=== PATIENT | female | born 1960 | race Caucasian/White ===

== ENCOUNTER 2020-07-21 09:22 | Outpatient (CLI) | payer OTHER ==
--- NOTE | 2020-07-21 12:11 | MRI ---
MRI BRAIN NONCONTRAST: DATE: 07/21/2020 HISTORY: 59-year-old female with migraine with aura, not intractable, without status migrainosus. FINDINGS: The ventricles are normal in size and configuration. There is no major intra-axial signal abnormality , restricted diffusion, midline shift or any other mass effect, recent intra-axial hemorrhage, or extra-axial fluid collection. IMPRESSION: Normal
== END 2020-07-21 09:23 | disposition home or self-care (01) ==
LOC: MRI 09:22
PROVIDERS: ATTEND Psychiatry & Neurology Neurology
DX: G43.109 Migraine with aura, not intractable, without status migrainosus (principal)
CPT/HCPCS: 70553; 82565

== ENCOUNTER → 2020-12-20 | Day surgery (SDC) | payer OTHER ==
[~2020-12-20] MED LIST: Lidocaine 1% w/Epinephrine 1:100K 20 ML VIAL ONE
== END ==
LOC: SDC 10:06
PROVIDERS: ATTEND Internal Medicine Cardiovascular Disease
PROC: 0JPT02Z Removal of Monitoring Device from Trunk Subcutaneous Tissue and Fascia, Open Approach (ICD-10-PCS; principal; 2020-12-20)
DX: Z45.09 Encounter for adjustment and management of other cardiac device (principal)
CPT/HCPCS: 33286

== ENCOUNTER 2021-11-08 14:51 | Outpatient (CLI) | payer BC | END 2021-11-08 14:52 | disposition home or self-care (01) | LOC: CTENTCT 14:51 | PROVIDERS: ATTEND Specialist | DX: J34.2 Deviated nasal septum (principal) | CPT/HCPCS: 70486 ==

== ENCOUNTER 2022-02-15 10:10 | Day surgery (SDC) | payer BC ==
[2022-02-14 09:53] VITALS: BMI 20.4
[2022-02-15] MEDS ORDERED: Oxymetazoline HCl 0.05% (30 ML BOT) ONE ×2 (10:29→11:23)
[2022-02-15] MEDS ORDERED: Ondansetron PF 4 MG/2 ML Vial ONE (10:32)
[2022-02-15] MEDS ORDERED: Lidocaine 1% PF 5 ML VIAL ONE (10:32)
[2022-02-15] MEDS ORDERED: Rocuronium Bromide 10 MG/ML (10ML VIAL) ONE (10:32)
[2022-02-15] MEDS ORDERED: Dexamethasone 20 MG/5 ML VIAL ONE (10:32)
[2022-02-15] MEDS ORDERED: ePHEDrine 50 MG/ML VIAL ONE (10:32)
[2022-02-15] MEDS ORDERED: PROPOFOL 200 MG/20 ML VIAL ONE (10:32)
[2022-02-15] MEDS ORDERED: Lidocaine 1% w/Epinephrine 1:100K 20 ML VIAL ONE (11:23)
[2022-02-15] MEDS ORDERED: Bacitracin Zinc Ointment 30 gm TUBE ONE (11:23)
[2022-02-15] MEDS ORDERED: fentaNYL Citrate/PF 100 MCG/2 ML SYRINGE ONE (11:43)
[2022-02-15] MEDS ORDERED: Midazolam HCl 2 mg/2 ml Vial ONE (11:43)
[2022-02-15] MEDS ORDERED: SUGAMMADEX SODIUM 200 MG/2 ML VIAL ONE (12:32)
[2022-02-15] MEDS ORDERED: Fentanyl 100 MCG/2 ML VIAL ONE ×2 (12:59→13:17)
== END 2022-02-15 14:38 | disposition home or self-care (01) ==
LOC: SDC 10:10
PROVIDERS: ATTEND Specialist
PROC: 09BQ8ZZ Excision of Right Maxillary Sinus, Via Natural or Artificial Opening Endoscopic (ICD-10-PCS; principal; 2022-02-15)
PROC: 09SL8ZZ Reposition Nasal Turbinate, Via Natural or Artificial Opening Endoscopic (ICD-10-PCS; principal; 2022-02-15)
PROC: 09BR8ZZ Excision of Left Maxillary Sinus, Via Natural or Artificial Opening Endoscopic (ICD-10-PCS; principal; 2022-02-15)
PROC: 09SM0ZZ Reposition Nasal Septum, Open Approach (ICD-10-PCS; principal; 2022-02-15)
DX: J32.0 Chronic maxillary sinusitis (principal); J34.2 Deviated nasal septum; J34.3 Hypertrophy of nasal turbinates; J34.89 Other specified disorders of nose and nasal sinuses; G44.89 Other headache syndrome; E03.9 Hypothyroidism, unspecified; Z79.890 Hormone replacement therapy; Z79.899 Other long term (current) drug therapy; Z88.0 Allergy status to penicillin
CPT/HCPCS: 85014; 93005; 93010; J1100; J2250; J2405; J2704; J3010; J3490

== ENCOUNTER 2023-05-29 08:53 | Outpatient (CLI) | payer BC | END 2023-05-29 08:54 | disposition home or self-care (01) | LOC: BICMAMMO 08:53 | PROVIDERS: ATTEND Obstetrics & Gynecology | DX: Z12.31 Encounter for screening mammogram for malignant neoplasm of breast (principal); Z80.3 Family history of malignant neoplasm of breast; Z85.828 Personal history of other malignant neoplasm of skin; Z91.89 Other specified personal risk factors, not elsewhere classified | CPT/HCPCS: 77063; 77067 ==